=== PATIENT | male | born 2000 | race Caucasian/White ===

== ENCOUNTER 2021-07-06 09:24 | Emergency (ER) | payer BC ==
[~2021-07-06] VITALS: Ht 170.1 cm; Wt 88.5 kg
[2021-07-06 09:36] VITALS: BP 117/79
[2021-07-06 10:22] LABS: ALBUMIN 3.8 gm/dl (3.1-4.5); ALKALINE PHOSPHATASE 72 U/L (45-117); BUN 16 mg/dl (7-24); CHLORIDE 105 mmol/L (98-107); CREATININE 0.94 mg/dL (0.70-1.30); POTASSIUM 4.1 mmol/L (3.5-5.1); SGOT/AST 20 IU/L (3-35); SGPT/ALT 30 U/L (12-78); SODIUM 140 mmol/L (136-145); TOTAL PROTEIN 7.4 gm/dL (6.4-8.2)
== END 2021-07-06 10:52 | disposition home or self-care (01) ==
LOC: ED 09:24
PROVIDERS: Student in an Organized Health Care Education/Training Program
DX: R00.2 Palpitations (principal); Z91.040 Latex allergy status

== ENCOUNTER 2022-01-20 20:20 | Emergency (ER) | payer OTHER, BC ==
[~2022-01-20] VITALS: Ht 170.1 cm; Wt 95.3 kg
[2022-01-20 20:29] VITALS: BP 137/82
[2022-01-20] MEDS ORDERED: IBUPROFEN600 MG PO (21:43)
[2022-01-20] MEDS ORDERED: TOBRAMYCIN 5 ML5 M1 OPH (21:43)
== END 2022-01-20 21:50 | disposition home or self-care (01) ==
LOC: ED 20:20
DX: S05.02XA Injury of conjunctiva and corneal abrasion without foreign body, left eye, initial encounter (principal); W22.8XXA Striking against or struck by other objects, initial encounter; Y93.89 Activity, other specified; Y92.89 Other specified places as the place of occurrence of the external cause; Y99.8 Other external cause status